=== PATIENT | female | born 1955 | race Caucasian/White ===

== ENCOUNTER 2021-11-04 12:50 | Emergency (ER) | payer OTHER, MEDICARE ==
[2021-11-04] MEDS ORDERED: Lidocaine 1% 5 ML VIAL INJECT ONE (12:54)
== END 2021-11-04 13:48 | disposition home or self-care (01) ==
LOC: VM.ED 12:50
DX: S51.012A Laceration without foreign body of left elbow, initial encounter (principal); W18.30XA Fall on same level, unspecified, initial encounter
CPT/HCPCS: 12001; 99283; 99284-25